=== PATIENT | female | born 1995 | race Caucasian/White ===

== ENCOUNTER 2018-02-05 14:59 | Emergency (ER) | payer MEDICAID ==
[2018-02-05 15:09] VITALS: Ht 165.1 cm
[2018-02-05 17:41] VITALS: BP 126/79
== END 2018-02-05 17:44 | disposition home or self-care (01) ==
LOC: ED 14:59
DX: O26.891 Other specified pregnancy related conditions, first trimester (principal); R10.9 Unspecified abdominal pain; Z3A.11 11 weeks gestation of pregnancy